=== PATIENT | male | born 1940 | race Two or more races ===

== ENCOUNTER 2024-07-13 15:27 | Inpatient (IN) | payer OTHER ==
[~2024-07-13] VITALS: Ht 162.6 cm; Wt 108.1 kg
--- NOTE | 2024-07-13 16:04 | ED.PDOC ---
History of Present Illness HPI Comments 84 y/o M, with a Hx of CHF, COPD, and obesity, is BIBA for c/o ALOC, shortness of breath, and wheezing, today. Per EMS report, patient's spouse called, initially, due to patient being altered for the past 5x days, with him last being seen normal on 07/08/24. Patient was found wheezing, with low SpO2 saturation in the "low 70's," and being oriented only to place on scene and was placed on nebulizer Tx with 8L O2 en route. All other remaining vitals were stated to have been within normal limits and stable. At time of assessment, patient comments on being "cold" and has labored breath, with short-worded response to inquires. Patient has no reported known recent injuries, sick contact, travel, or substance use/exposure along with any additional pertinent or relevant Hx. Patient has no endorsed no chest pain, cough, palpations, fever, chills, or other associated symptoms or modifiers at this time. Further Hx cannot be obtained, currently, due to patient's current condition and absence of family/insurance investigator historians. Chief Complaint: Shortness of Breath Time Seen by MD: 15:30 Primary Care Provider: UNKNOWN Reviewed Notes: Nurses Notes, Medications, Allergies Allergies: Coded Allergies: Fentanyl (Verified Allergy, Severe, 07/13/24) Information Source: Patient, Emergency Med Personnel Mode of Arrival: EMS Severity: Moderate Timing: Days Duration: Since onset Prehospital treatment: 12 Lead EKG, Accucheck, Medical Laboratory Specialist Past Medical History PAST MEDICAL HISTORY: CHF, COPD Past Medical History (Other): obesity Surgical History: Tonsillectomy Surgical History (Other): right knee Sx Constitutional: denies: chills, diaphoresis, fatigue, fever, malaise, sweats, weakness, others EENTM: denies: blurred vision, double vision, ear bleeding, ear discharge, ear drainage, ear pain, ear ringing, eye pain, eye redness, hearing loss, mouth pain, mouth swelling, nasal discharge, nose bleeding, nose congestion, nose pain, photophobia, tearing, throat pain, throat swelling, voice changes, others Respiratory: reports: shortness of breath, wheezing; denies: cough, hemoptysis, orthopnea, SOB at rest, SOB with excertion, stridor, others Cardiovascular: denies: chest pain, dizzy spells, diaphoresis, Dyspnea on exertion, edema, irregular heart beat, left arm pain, lightheadedness, palpitations, PND, syncope, others Gastrointestinal: denies: abdomen distended, abdominal pain, blood streaked bowels, constipated, diarrhea, dysphagia, difficulty swallowing, hematemesis, melena, nausea, poor appetite, poor fluid intake, rectal bleeding, rectal pain, vomiting, others Genitourinary: denies: burning, dysuria, flank pain, frequency, hematuria, incontinence, penile discharge, penile sore, pain, testicle pain, testicle swelling, urgency, others Neurological: reports: others (ALOC); denies: dizziness, fainting, headache, left sided numbness, left sided weakness, numbness, paresthesia, pre-existing deficit, right sided numbness, right sided weakness, seizure, speech problems, tingling, tremors, weakness Musculoskeletal: denies: back pain, gout, joint pain, joint swelling, muscle pain, muscle stiffness, neck pain, others Integumetry: denies: bruises, change in color, change in hair/nails, dryness, laceration, lesions, lumps, rash, wounds, others Allergic/Immunocompromised: denies: Difficulty Healing, Frequent Infections, Hives, Itching, others Hematologic/Lymphatic: denies: anemia, blood clots, easy bleeding, easy bruising, swollen glands, others Endocrine: denies: excessive hunger, excessive sweating, excessive thirst, excessive urination, flushing, intolerance to cold, intolerance to heat, unexplained weight gain, unexplained weight loss, others Psychiatric: denies: anxiety, bipolar disorder, depression, hopeless, panic disorder, schizophrenia, sleepless, suicidal, others All Other Systems: Reviewed and Negative Physical Exam General Appearance: Moderate Distress, Obese HEENT: Normal ENT Inspection, Pharynx Normal, TMs Normal Neck: Full Range of Motion, Non-Tender, Normal, Normal Inspection Respiratory: Chest Non-Tender, Decreased Breath Sounds, No Accessory Muscle Use, Respiratory Distress, Wheezing Cardiovascular: No Edema, No JVD, No Murmur, No Gallop, Normal Peripheral Pulses, Regular Rate/Rhythm Breast Exam: Deferred Gastrointestinal: No Organomegaly, Non Tender, No Pulsatile Mass, Normal Bowel Sounds, Soft Genitalia: Deferred Pelvic: Deferred Rectal: Deferred Extremities: No calf tenderness, Normal capillary refill, Normal inspection, Normal range of motion, Non-tender, No pedal edema Musculoskeletal : Apperance: Normal Neurologic: Alert, brand ambassadors promotional sales II-XII nml as Tested, Motor Weakness, Normal Affect, Normal Mood, No Sensory Deficits Cerebellar Function: Normal Reflexes: Normal Skin: Dry, Normal Color, Warm Lymphatic: No Adenopathy Was a procedure done? Was a procedure done?: No EKG EKG : Pulse Rate (adult): 76 [place]: Normal Cardiac Rhythm: NSR Block: RBBB Hypertrophy: None ST: Normal Differential Dx Considerations may include: COPD exacerbation, CHF exacerbation, PNA, pleural effusion, Covid19, bronchitis, URI, viral syndrome, UTI X-Ray, Labs, Meds, VS Vital Signs Date Time Temp Pulse Resp B/P (MAP) Pulse Ox O2 Delivery O2 Flow Rate FiO2 07/13/24 16:39 78 07/13/24 16:08 98 Nasal Cannula* 2 28 07/13/24 16:08 18 98 Nasal Cannula* 2 28 07/13/24 16:03 76 07/13/24 15:36 76 07/13/24 15:27 98.4 78 26 148/77 (100) 80 Lab Test 07/13/24 17:32 07/13/24 16:33 Range/Units Troponin I High Sensitivity Pending 13 </=54 ng/L White Blood Count 8.5 4.4-10.8 10^3/uL Red Blood Count 4.52 4.5-5.90 10^6/uL Hemoglobin 14.2 13.5-17.5 g/dL Hematocrit 43.9 41.0-53.0 % Mean Corpuscular Volume 97.0 80.0-100.0 fL Mean Corpuscular Hemoglobin 31.5 28.0-32.0 pg Mean Corpuscular Hemoglobin Concent 32.5 32.0-36.0 g/dL Red Cell Distribution Width 16.6 H 11.8-14.3 % Platelet Count 149 140-450 10^3/uL Mean Platelet Volume 11.1 H 6.9-10.8 fL Neutrophils (%) (Auto) 78.8 37.0-80.0 % Lymphocytes (%) (Auto) 12.7 10.0-50.0 % Monocytes (%) (Auto) 6.0 0.0-12.0 % Eosinophils (%) (Auto) 1.8 0.0-7.0 % Basophils (%) (Auto) 0.7 0.0-2.0 % Neutrophils # (Auto) 6.7 1.6-8.6 10 ^3/uL Lymphocytes # (Auto) 1.1 0.4-5.4 10 ^3/uL Monocytes # (Auto) 0.5 0-1.3 10 ^3/uL Eosinophils # (Auto) 0.2 0-0.8 10 ^3/uL Basophils # (Auto) 0.1 0-0.2 10 ^3/uL Nucleated Red Blood Cells 0.1 % Sodium Level Pending Potassium Level Pending Chloride Level Pending Carbon Dioxide Level Pending Anion Gap Pending Blood Urea Nitrogen Pending Creatinine Pending Glomerular Filtration Rate Calc Pending BUN/Creatinine Ratio Pending Serum Glucose Pending Calcium Level Pending B-Type Natriuretic Peptide Pending Current Medications Medications (Trade) Dose Ordered Sig/Carey Route Start Time Stop Time Status Last Admin Methylprednisolone Sodium Succinate (Solu Medrol) 125 mg ONCE ONCE IV 07/13/24 15:45 07/13/24 15:46 DC 07/13/24 16:42 Ipratropium [place] (Atrovent Medneb) 1 mg ONCE ONCE N 07/13/24 15:45 07/13/24 15:46 DC 07/13/24 16:08 Albuterol (Ventolin Medneb) 10 mg ONCE ONCE N 07/13/24 15:45 07/13/24 15:46 DC 07/13/24 16:08 PROCEDURE(s): CXRP - CHEST PORTABLE Findings/Impression: Frontal chest radiograph demonstrates that the left costophrenic angle is cut off on this exam. No acute osseous or superficial soft tissue abnormalities. The trachea is midline. Cardiomegaly with pulmonary vascular congestion. No pneumothorax, right pleural effusion, or consolidations. The patient was being given Lasix 40 mg IV push The patient was given a continuous breathing treatment of albuterol and Atrovent The patient was also given Solu-Medrol 125 mg IV push The CBC is within normal limits The patient's troponin level is negative At this time, the patient remains on oxygen nasal cannula The patient was being admitted to the hospitalist Images Reviewed?: Images reviewed and evaluated by me Time of 1ST Reevaluation: 16:00 Reevaluation 1ST: Unchanged Patient Education/Counseling: Diagnosis, Treatment, Prognosis Family Education/Counseling: No Family Present Departure 1 Departure Time of Disposition: 18:25 Impression: Primary Impression: Acute on chronic diastolic heart failure Additional Impression: COPD exacerbation Disposition: 09 ADMITTED INPATIENT Admit to: Tele Condition: Fair Critical Care Note Critical Care Time?: Yes (55 min-critical care time only) Stability Stability form required: Yes Unstable for transfer: Telemetry monitoring (Telemetry monitoring required), ED Physician Assesment (Clinical assesment) Heart Score Heart Score: Heart Score Response (Comments) Value History Moderate Suspicious 1 EKG Normal 0 Age >65 2 Risk Factors >3 or Hx ASHD 2 Troponin Normal limit 0 Total 5 I personally scribed for JOSE L BARRERA MD ([email or web address]) on 07/13/24 at 16:03. Electronically submitted by Ethan Boss ([email or web address]). I personally scribed for JOSE L BARRERA MD ([email or web address]) on 07/13/24 at 16:05. Electronically submitted by Ethan Boss ([email or web address]). I personally scribed for JOSE L BARRERA MD ([email or web address]) on 07/13/24 at 16:34. Electronically submitted by Ethan Boss ([email or web address]). JOSE L BARRERA MD Jul 13, 2024 16:03
[2024-07-13] MEDS: ALBUTEROL SULF 2.5 MG/0.5ML(0.5%) NEB SOLN HHN ONE (16:08)
[2024-07-13] MEDS: IPRATROPIUM BROM 0.5 MG/2.5ML INH SOL HHN ONE (16:08)
--- NOTE | 2024-07-13 16:19 | DVH ---
EXAM: XY CHEST PORTABLE TECHNIQUE: Single frontal chest radiograph CLINICAL HISTORY: sob COMPARISON: None Findings/Impression: Frontal chest radiograph demonstrates that the left costophrenic angle is cut off on this exam. No acute osseous or superficial soft tissue abnormalities. The trachea is midline. Cardiomegaly with pulmonary vascular congestion. No pneumothorax, right pleural effusion, or consolidations.
[2024-07-13] MEDS: methylPREDNISolone SOD SUCC 125 MG/2 ML VL IV ONE (16:42)
[2024-07-13 17:00] VITALS: PULSE 79; RESP 20; O2SAT 93
[2024-07-13 17:02] LABS: Basophils # (auto) 0.1 10 ^3/uL (0-0.2); Basophils % (auto) 0.7 % (0.0-2.0); Eosinophils # (auto) 0.2 10 ^3/uL (0-0.8); Eosinophils % (auto) 1.8 % (0.0-7.0); Hematocrit 43.9 % (41.0-53.0); Hemoglobin 14.2 g/dL (13.5-17.5); Lymphocytes # (auto) 1.1 10 ^3/uL (0.4-5.4); Lymphocytes % (auto) 12.7 % (10.0-50.0); Mean Corpuscular Hemoglobin 31.5 pg (28.0-32.0); Mean Corpuscular Hgb Conc. 32.5 g/dL (32.0-36.0); Monocytes # (auto) 0.5 10 ^3/uL (0-1.3); Neutrophils # (auto) 6.7 10 ^3/uL (1.6-8.6); Neutrophils % (auto) 78.8 % (37.0-80.0); Nucleated Red Blood Cells % 0.1 %; Platelet Count (auto) 149 10^3/uL (140-450); Red Blood Cells 4.52 10^6/uL (4.5-5.90); Red Cell Distribution Width 16.6 % (11.8-14.3); White Blood Cell 8.5 10^3/uL (4.4-10.8)
[2024-07-13 18:41] LABS: Potassium 4.6 mmol/L (3.5-5.1); Sodium 143 mmol/L (136-145)
[2024-07-13 18:42] LABS: Anion Gap 11 (5-15); Calcium 9.8 mg/dL (8.7-10.4); Carbon Dioxide 22 mmol/L (20-31)
[2024-07-13 18:47] LABS: BUN/Creatinine Ratio 11.3 (10.0-20.0); Blood Urea Nitrogen 15 mg/dL (9-23)
[2024-07-13 18:57] LABS: Chloride 110 mmol/L (98-107); Glucose 166 mg/dL (74-106)
--- NOTE | 2024-07-13 18:59 | ECG ---
[facility] Test Date: 2024-07-13 Test Time: 15:33:20 Pat Name: IVORY PURCELL Department: ED Room: 0293T Gender: M Sample Card Maker: SERVANDO : 1940 Requested By: JOSE L BARRERA Order Number: [id number] Reading MD: Floyd Longoria Measurements Intervals [place] Rate: 76 P: 14 TX: 227 QRS: 41 QRSD: 155 T: 45 QT: 461 QTc: 519 Interpretive Statements Sinus rhythm Prolonged TX interval Right bundle branch block Electronically Signed On 07-14-2024 12:05:06 PST by Floyd Longoria Please click the below link to view image of tracing.
[2024-07-13 19:30] VITALS: PULSE 69; RESP 20; O2SAT 99
[2024-07-13] MEDS: FUROSEMIDE 40 MG/4 ML VIAL IV ONE (20:12)
[2024-07-13 20:13] LABS: Urine Bacteria None Seen /hpf (None Seen)
[2024-07-13 20:26] LABS: Urine Blood Negative /uL (Negative); Urine Clarity Clear (Clear); Urine Color Yellow (Yellow); Urine Mucus FEW (None Seen); Urine Protein, UAD 1+ (Negative); Urine Specific Gravity 1.026 (1.001-1.035); Urine Urobilinogen Normal (Negative); Urine WBC 1 /hpf (0 - 3); Urine pH 5.5 (5.0-9.0)
[2024-07-13] MEDS ORDERED: NITROGLYCERIN 0.4 MG SL TAB SL PRN (21:00)
[2024-07-13] MEDS ORDERED: MORPHINE SULFATE INJ 2 MG/ml SYRG IV PRN (21:00)
[2024-07-13] MEDS ORDERED: ACETAMINOPHEN 325 MG TAB PO PRN (22:00)
[2024-07-13] MEDS ORDERED: ONDANSETRON HCL 4 MG/2 ML VIAL IV PRN (22:00)
[2024-07-13 22:30] VITALS: BP 162/131; PULSE 71; RESP 18; TEMP 98.2; O2SAT 98
--- NOTE | 2024-07-13 22:59 | DVH ---
CT HEAD WITHOUT CONTRAST INDICATION: AMS COMPARISON: None TECHNIQUE: CT of the head without intravenous contrast. RADIATION DOSE: CTDIvol: 62.81 mGy, DLP: 1132.21 mGy*cm FINDINGS: There is no evidence of acute intracranial hemorrhage, extra-axial collection, mass effect, midline s hift, herniation or hydrocephalus. The ventricles, sulci and cisterns are age appropriate. Chronic microvascular ischemic changes. Severe mucosal thickening of the right maxillary sinus. The surroun ding soft tissues and osseous structures are unremarkable. IMPRESSION: 1. No evidence of acute intracranial hemorrhage, mass effect or hydrocephalus. 2. Right maxillary sinusitis.
--- NOTE | 2024-07-13 23:05 | DVH ---
Bilateral lower extremity venous duplex Clinical History: r/o dvt Comparison: None Technique: Duplex Doppler evaluation of the deep venous systems of both lower extremities from the common femora l veins to the popliteal veins including color Doppler and spectral/pulsed waveform analysis was perf ormed. Findings: RIGHT SIDE: The common femoral vein demonstrates appropriate compressibility and waveform variability. There is compressibility/patency of the great saphenous vein at the proximal thigh. The femoral vein demonstrates appropriate compressibility and waveform variability. The deep femoral vein demonstrates appropriate compressibility and waveform variability. The popliteal vein demonstrates appropriate compressibility and waveform variability. There is normal compressibility at the tibioperoneal trunk. LEFT SIDE: The common femoral vein demonstrates appropriate compressibility and waveform variability. There is compressibility/patency of the great saphenous vein at the proximal thigh. The femoral vein demonstrates appropriate compressibility and waveform variability. The deep femoral vein demonstrates appropriate compressibility and waveform variability. The popliteal vein demonstrates appropriate compressibility and waveform variability. There is normal compressibility at the tibioperoneal trunk. Impression: 1. No right or left femoropopliteal venous thrombosis.
[2024-07-14] VITALS (12 sets, daily range): BP systolic 118–136; BP diastolic 49–75; PULSE 55–84; RESP 18–23; TEMP 97–98.2; O2SAT 88–99
[2024-07-14] MEDS: ATORVASTATIN 20 MG TAB PO SCH (00:09)
[2024-07-14] MEDS: CARVEDILOL 3.125 MG TAB PO SCH (00:10)
--- NOTE | 2024-07-14 00:43 | DVHHP2 ---
History of Present Illness Reason for Visit: Shortness of breath History of Present Illness 84-year-old male with a history of congestive heart failure and COPD presents for evaluation of shortness for breath. On arrival patient was noted to be altered with a low oxygen saturation. Patient is currently lethargic oriented x2. Denies chest pain or palpitations. No family at the bedside to provide further history. Past Medical History COPD, hypertension, CHF, dyslipidemia,? Dementia Past Surgical History Tonsillectomy Family History Noncontributory Smoke: No ALCOHOL: none Drugs: None Lives: with Family Review of Systems Review of Systems Review of systems are limited due to the patient's altered mental status. Allergies: Coded Allergies: Fentanyl (Verified Allergy, Severe, 07/13/24) Medications Current Medications Medications Dose Ordered Sig/Carey Route Start Time Stop Time Status Last Admin Dose Admin Nitroglycerin 0.4 mg Q5MINP PRN SL 07/13/24 21:00 Morphine Sulfate 2 mg Q30M PRN IV 07/13/24 21:00 Albuterol 2.5 mg Q6HPRN PRN NEB 07/13/24 22:00 Carvedilol 3.125 mg Q12HR PO 07/13/24 22:00 07/14/24 00:10 3.125 MG Furosemide 40 mg DAILY PO 07/14/24 10:00 Lisinopril 10 mg DAILY PO 07/14/24 10:00 Atorvastatin Calcium 10 mg HS PO 07/13/24 22:00 07/14/24 00:09 10 MG Aspirin 81 mg DAILY PO 07/14/24 10:00 Ondansetron HCl 4 mg Q4HP PRN IV 07/13/24 22:00 Enoxaparin Sodium 40 mg DAILY SC 07/14/24 10:00 Acetaminophen 650 mg Q6HP PRN PO 07/13/24 22:00 Exam Vital Signs Vital Signs Date Time Temp Pulse Resp B/P (MAP) Pulse Ox O2 Delivery O2 Flow Rate FiO2 07/14/24 00:10 71 146/79 07/14/24 00:00 19 93 07/13/24 22:30 98.2 3.0 32 98.2 07/13/24 22:30 Nasal Cannula* Exam Gen: 84-year-old male in mild distress, lethargic Skin: Warm, dry, normal color and texture, no rash. HEENT: Normocephalic atraumatic, mucous membranes moist and pink. Neck: Cervical and supraclavicular nodes normal without enlargement, trachea is midline, thyroid gland is normal without masses. Pulmonary: Clear to auscultation and percussion bilaterally. Cardiac: Regular rate and rhythm. No murmur Abdomen: Soft, nontender, nondistended, bowel sounds present all 4 quadrants, no guarding, no rigidity, no organomegaly. Extremities: No cyanosis, clubbing, no edema Neuro: Cranial nerves II through XII grossly intact, lethargic, no focal deficits Labs/Xrays ORDERING PHYSICIAN: LORI ARIZACNP PROCEDURE(s): BLDVT - BiLat Lower DVT REASON: r/o dvt ORDER NUMBER(s): [id number], ACCESSION NUMBER(s): [id number] Bilateral lower extremity venous duplex Clinical History: r/o dvt Comparison: None Technique: Duplex Doppler evaluation of the deep venous systems of both lower extremities from the common femoral veins to the popliteal veins including color Doppler and spectral/pulsed waveform analysis was performed. Findings: RIGHT SIDE: The common femoral vein demonstrates appropriate compressibility and waveform variability. There is compressibility/patency of the great saphenous vein at the proximal thigh. The femoral vein demonstrates appropriate compressibility and waveform variability. The deep femoral vein demonstrates appropriate compressibility and waveform variability. The popliteal vein demonstrates appropriate compressibility and waveform variability. There is normal compressibility at the tibioperoneal trunk. LEFT SIDE: The common femoral vein demonstrates appropriate compressibility and waveform variability. There is compressibility/patency of the great saphenous vein at the proximal thigh. The femoral vein demonstrates appropriate compressibility and waveform variability. The deep femoral vein demonstrates appropriate compressibility and waveform vari ability. The popliteal vein demonstrates appropriate compressibility and waveform variability. There is normal compressibility at the tibioperoneal trunk. Impression: 1. No right or left femoropopliteal venous thrombosis. ATED BY: DANICA BOSTON MD ORDERING PHYSICIAN: LORI ARIZA AGACNP PROCEDURE(s): HWOCT - HEAD WITHOUT CONTRAST REASON: AMS ORDER NUMBER(s): [id number], ACCESSION NUMBER(s): [id number] CT HEAD WITHOUT CONTRAST INDICATION: AMS COMPARISON: None TECHNIQUE: CT of the head without intravenous contrast. RADIATION DOSE: CTDIvol: 62.81 mGy, DLP: 1132.21 mGy*cm FINDINGS: There is no evidence of acute intracranial hemorrhage, extra-axial collection, mass effect, midline shift, herniation or hydrocephalus. The ventricles, sulci and cisterns are age appropriate. Chronic microvascular ischemic changes. Severe mucosal thickening of the right maxillary sinus. The surrounding soft tissues and osseous structures are unremarkable. IMPRESSION: 1. No evidence of acute intracranial hemorrhage, mass effect or hydrocephalus. 2. Right maxillary sinusitis. Labs Test 07/13/24 20:12 07/13/24 17:32 07/13/24 16:33 Range/Units Urine Color Yellow Yellow Urine Clarity Clear Clear Urine pH 5.5 5.0-9.0 Urine Specific [place] 1.026 1.001-1.035 Urine Protein 1+ H Negative Urine Ketones Negative Negative Urine Blood Negative Negative /uL Urine Nitrite Negative Negative Urine Bilirubin Negative Negative Urine Urobilinogen Normal Negative mg/dL Urine Leukocyte Esterase Negative Negative /uL Urine RBC 1 0 - 3 /hpf Urine WBC 1 0 - 3 /hpf Urine Squamous Epithelial Cells Few <5 /hpf Urine Bacteria None seen None Seen /hpf Urine Mucus Few None Seen Urine Glucose Normal Normal mg/dL Sodium Level 143 136-145 mmol/L Potassium Level 4.6 3.5-5.1 mmol/L Chloride Level 110 H 98-107 mmol/L Carbon Dioxide Level 22 20-31 mmol/L Anion Gap 11 5-15 Blood Urea Nitrogen 15 9-23 mg/dL Creatinine 1.33 H 0.700-1.30 mg/dL Glomerular Filtration Rate Calc 52 >90 mL/min BUN/Creatinine Ratio 11.3 10.0-20.0 Serum Glucose 166 H 74-106 mg/dL Calcium Level 9.8 8.7-10.4 mg/dL Troponin I High Sensitivity 12 </=54 ng/L White Blood Count 8.5 4.4-10.8 10^3/uL Red Blood Count 4.52 4.5-5.90 10^6/uL Hemoglobin 14.2 13.5-17.5 g/dL Hematocrit 43.9 41.0-53.0 % Mean Corpuscular Volume 97.0 80.0-100.0 fL Mean Corpuscular Hemoglobin 31.5 28.0-32.0 pg Mean Corpuscular Hemoglobin Concent 32.5 32.0-36.0 g/dL Red Cell Distribution Width 16.6 H 11.8-14.3 % Platelet Count 149 140-450 10^3/uL Mean Platelet Volume 11.1 H 6.9-10.8 fL Neutrophils (%) (Auto) 78.8 37.0-80.0 % Lymphocytes (%) (Auto) 12.7 10.0-50.0 % Monocytes (%) (Auto) 6.0 0.0-12.0 % Eosinophils (%) (Auto) 1.8 0.0-7.0 % Basophils (%) (Auto) 0.7 0.0-2.0 % Neutrophils # (Auto) 6.7 1.6-8.6 10 ^3/uL Lymphocytes # (Auto) 1.1 0.4-5.4 10 ^3/uL Monocytes # (Auto) 0.5 0-1.3 10 ^3/uL Eosinophils # (Auto) 0.2 0-0.8 10 ^3/uL Basophils # (Auto) 0.1 0-0.2 10 ^3/uL Nucleated Red Blood Cells 0.1 % B-Type Natriuretic Peptide 196.56 0-100 pg/mL Assessment/Plan Assessment/Plan Assessment Acute on chronic respiratory failure Congestive heart failure COPD ? Metabolic encephalopathy Hypertension ? Dementia Plan Admit the patient to telemetry to the hospitalist Echocardiogram pending Resume home medications Continue treatment per orders. Plan discussed with: Other My Orders Orders - LORI ARIZA Procedure Category Date Status Time Admit ADMIT 07/13/24 Transmitted 20:48 Nitroglycerin PHA 07/13/24 In Process Sublingual (Ntrostat 21:00 Morphine Sulfate PHA 07/13/24 In Process Injection 21:00 Stat Ekg For Chest MARY 07/13/24 In Process Pain 20:48 Notify Of Changes MARY 07/13/24 In Process From Base 20:48 Cover Maker For MARY 07/13/24 In Process 24 Hours 20:48 Emergency Dysrhythmia MARY 07/13/24 In Process Protocol 20:48 Rhythm Strips Once MARY 07/13/24 In Process Every Shift 20:48 Oxygen By Nasal RT 07/13/24 Transmitted Cannula 20:[address] 07/13/24 Resulted 21:50 Bilat Lower Dvt US 07/13/24 Resulted 21:50 Albuterol Medneb PHA 07/13/24 In Process (Ventolin Medneb) 22:00 Carvedilol Tablet PHA 07/13/24 In Process (Coreg Tablet) 22:00 Furosemide Tablet PHA 07/14/24 In Process (Lasix Tablet) 10:00 Lisinopril Tablet PHA 07/14/24 In Process (Zestril Tablet) 10:00 Atorvastatin (Lipitor) PHA 07/13/24 In Process 22:00 Aspirin Tablet PHA 07/14/24 In Process 10:00 Basic Metabolic Panel LAB 07/14/24 Logged 04:00 Ondansetron Hcl PHA 07/13/24 In Process (Zofran) 22:00 Enoxaparin Sodium PHA 07/14/24 In Process (Lovenox) 10:00 Complete Blood Count LAB 07/14/24 Logged 04:00 Echo 2d Mode Cardiac US 07/13/24 Logged DOP 21:50 Condition: Fair MARY 07/13/24 In Process 21:50 Acetaminophen Tablet PHA 07/13/24 In Process (Tylenol Tablet) 22:00 Bedrest With Bathroom MAYR 07/13/24 In Process Privileg 21:50 Date of Service: Jul 13, 2024 Billing Provider: LORI ARIZA Common Visit Codes: [id number] INP/OBS CARE (HIGH) LORI ARIZA Jul 14, 2024 00:43
[2024-07-14] MEDS: ALBUTEROL SULF 2.5 MG/0.5ML(0.5%) NEB SOLN NEB PRN (05:18)
[2024-07-14] MEDS: hydrALAZINE HCL 20 MG/ML VL IV ONE (06:13)
[2024-07-14 08:41] LABS: Chloride 106 mmol/L (98-107); Potassium 4.8 mmol/L (3.5-5.1); Sodium 141 mmol/L (136-145)
[2024-07-14 08:42] LABS: Anion Gap 9 (5-15); Carbon Dioxide 26 mmol/L (20-31)
[2024-07-14 08:43] LABS: Calcium 9.9 mg/dL (8.7-10.4)
[2024-07-14 08:46] LABS: Basophils # (auto) 0 10 ^3/uL (0-0.2); Basophils % (auto) 0.1 % (0.0-2.0); Eosinophils # (auto) 0 10 ^3/uL (0-0.8); Hematocrit 43.3 % (41.0-53.0); Hemoglobin 13.7 g/dL (13.5-17.5); Lymphocytes # (auto) 0.5 10 ^3/uL (0.4-5.4); Lymphocytes % (auto) 8.2 % (10.0-50.0); Mean Corpuscular Hemoglobin 30.9 pg (28.0-32.0); Mean Corpuscular Hgb Conc. 31.8 g/dL (32.0-36.0); Mean Corpuscular Volume 97.3 fL (80.0-100.0); Monocytes # (auto) 0.1 10 ^3/uL (0-1.3); Neutrophils # (auto) 5.2 10 ^3/uL (1.6-8.6); Neutrophils % (auto) 90.7 % (37.0-80.0); Nucleated Red Blood Cells % 0.2 %; Platelet Count (auto) 133 10^3/uL (140-450); Red Blood Cells 4.45 10^6/uL (4.5-5.90); White Blood Cell 5.7 10^3/uL (4.4-10.8)
[2024-07-14 08:47] LABS: Blood Urea Nitrogen 21 mg/dL (9-23)
[2024-07-14 08:52] LABS: Glucose 254 mg/dL (74-106)
[2024-07-14] MEDS: ENOXAPARIN SOD 40 MG/0.4 ML SYRINGE SC SCH (10:00)
[2024-07-14] MEDS: LISINOPRIL 5 MG TAB PO SCH (10:38)
[2024-07-14] MEDS: ASPirin 81 mg TAB PO SCH (10:39)
[2024-07-14] MEDS: FUROSEMIDE 40 MG TAB PO SCH (10:39)
--- NOTE | 2024-07-14 15:25 | DVHPN2 ---
Progress Note Date Seen: Jul 14, 2024 Medical Necessity Reason Pt with a Central, PICC or Fol: Yes The following are medically ne: Huynh Catheter Reason for huynh catheter: Strict I&O Subjective Patient reports: No new complaints Review of Systems: HEENT:Normal, CVS:Normal, RESPIRATORY:Normal, GI:Normal, :Normal, MSK:Normal, NEURO:Normal Objective vital signs Vital Sign Date Time Temp Pulse Resp B/P (MAP) Pulse Ox O2 Delivery O2 Flow Rate FiO2 07/14/24 13:00 97.6 73 22 118/75 (89) 99 97.6 07/14/24 09:55 Nasal Cannula* 3 32 medications Current Medications Medications Dose Ordered Sig/Carey Route Start Time Stop Time Status Last Admin Dose Admin Nitroglycerin 0.4 mg Q5MINP PRN SL 07/13/24 21:00 Morphine Sulfate 2 mg Q30M PRN IV 07/13/24 21:00 Albuterol 2.5 mg Q6HPRN PRN NEB 07/13/24 22:00 07/14/24 05:18 2.5 MG Carvedilol 3.125 mg Q12HR PO 07/13/24 22:00 07/14/24 10:39 3.125 MG Furosemide 40 mg DAILY PO 07/14/24 10:00 07/14/24 10:39 40 MG Lisinopril 10 mg DAILY PO 07/14/24 10:00 07/14/24 10:38 10 MG Atorvastatin Calcium 10 mg HS PO 07/13/24 22:00 07/14/24 00:09 10 MG Aspirin 81 mg DAILY PO 07/14/24 10:00 07/14/24 10:39 81 MG Ondansetron HCl 4 mg Q4HP PRN IV 07/13/24 22:00 Enoxaparin Sodium 40 mg DAILY SC 07/14/24 10:00 Acetaminophen 650 mg Q6HP PRN PO 07/13/24 22:00 Examination: GENERAL:Normal, HEENT:Normal, NECK:Normal, LUNGS:Normal, LUNGS:Abnormal (on oxygen), CVS:Normal, ABDOMEN:Normal, MSK:Normal, MSK:Abnormal (edema++, ulcer left leg), SKIN:Normal, NEURO:Normal, :Normal laboratory and microbiology Laboratory Tests 07/14/24 08:15 Test 07/14/24 08:15 Range/Units Serum Glucose 254 H 74-106 mg/dL Problem List/Assessment/Plan Problem List/Assessment/Plan #1 acute resp failure: cont oxygen #2 acute systolic/diastolic heart failure: lasix iv, echo #3 cellulitis left leg: iv ancef #4 obesity #5 copd #6 non ambulatory #7 ckd stage 3 #8 thrombocytopenia: monitor advance care planning- full code- time spent 19 mins Plan discussed with: Patient My Orders My Orders Orders - LORI ROSE MD Procedure Category Date Status Time Cleanse Wound With MARY 07/14/24 In Process Wound Clean 11:18 Apply Barrier Cream MARY 07/14/24 In Process 10:38 Furosemide Injection PHA 07/14/24 Verified (Lasix Injection) 15:30 Furosemide Injection PHA 07/15/24 Verified (Lasix Injection) 10:00 Cefazolin Ancef PHA 07/14/24 Verified 22:00 Basic Metabolic Panel LAB 07/15/24 Verified 06:00 Complete Blood Count LAB 07/15/24 Verified 06:00 Vitamin B12 LAB 07/15/24 Verified 06:00 Thyroid Stimulating LAB 07/15/24 Verified Hormone 05:00 Date of Service: Jul 14, 2024 Billing Provider: LORI ROSE MD Common Visit Codes: [id number] INP/OBS CARE(HIGH) Secondary Visit Codes: [id number] CARE PLAN 30 MINUTES LORI ROSE MD Jul 14, 2024 15:24
[2024-07-14] MEDS: ceFAZolin 1GM/50ML 50 ML IV ONE (18:45)
[2024-07-14] MEDS: FUROSEMIDE 40 MG/4 ML VIAL IV ONE (18:51)
[2024-07-14 19:44] LABS: Base Excess 1.5 mmol/L (-2.0-3.0)
--- NOTE | 2024-07-14 20:46 | DVH ---
CHEST RADIOGRAPH Indication: SOB Technique: Single frontal view of the chest was obtained COMPARISON: XY CHEST PORTABLE on DOS: 07/13/24 FINDINGS: Lines and Tubes: None Lungs: Moderate interstitial pulmonary edema. Pleura: Small left effusion. No pneumothorax. Cardiomediastinal contours: Cardiomegaly Bones: Unremarkable IMPRESSION: 1. Moderate interstitial pulmonary edema. 2. Cardiomegaly. 3. Small left effusion.
[2024-07-14] MEDS: ceFAZolin 1GM/50ML 50 ML IV SCH (21:15)
[2024-07-15] VITALS (12 sets, daily range): BP systolic 109–154; BP diastolic 55–81; PULSE 53–68; RESP 18–21; TEMP 96.4–98.9; O2SAT 95–98
[2024-07-15 08:14] LABS: Basophils # (auto) 0 10 ^3/uL (0-0.2); Basophils % (auto) 0.4 % (0.0-2.0); Eosinophils # (auto) 0 10 ^3/uL (0-0.8); Eosinophils % (auto) 0.4 % (0.0-7.0); Hematocrit 41.4 % (41.0-53.0); Hemoglobin 13.7 g/dL (13.5-17.5); Lymphocytes # (auto) 1.4 10 ^3/uL (0.4-5.4); Lymphocytes % (auto) 14.1 % (10.0-50.0); Mean Corpuscular Hemoglobin 31.7 pg (28.0-32.0); Mean Corpuscular Hgb Conc. 33.1 g/dL (32.0-36.0); Mean Corpuscular Volume 95.9 fL (80.0-100.0); Monocytes # (auto) 0.8 10 ^3/uL (0-1.3); Monocytes % (auto) 7.9 % (0.0-12.0); Neutrophils # (auto) 7.7 10 ^3/uL (1.6-8.6); Neutrophils % (auto) 77.2 % (37.0-80.0); Platelet Count (auto) 148 10^3/uL (140-450); Red Blood Cells 4.31 10^6/uL (4.5-5.90); Red Cell Distribution Width 16.1 % (11.8-14.3)
[2024-07-15 08:26] LABS: Chloride 103 mmol/L (98-107); Potassium 4.4 mmol/L (3.5-5.1); Sodium 141 mmol/L (136-145)
[2024-07-15 08:27] LABS: Anion Gap 8 (5-15); Calcium 9.5 mg/dL (8.7-10.4); Carbon Dioxide 30 mmol/L (20-31)
[2024-07-15 08:32] LABS: BUN/Creatinine Ratio 20.8 (10.0-20.0)
[2024-07-15 08:33] LABS: Blood Urea Nitrogen 37 mg/dL (9-23); Glucose 153 mg/dL (74-106)
[2024-07-15] MEDS: FUROSEMIDE 40 MG/4 ML VIAL IV SCH (10:32)
--- NOTE | 2024-07-15 11:05 | DVHPN2 ---
Subjective Continue to complain of shortness of breath Reviewed: Care Plan, H&P, Labs, Medications, Previous Orders, Radiology Changes from previous H/P or p: No Changes Objective Vitals Vital Signs Date Time Temp Pulse Resp B/P (MAP) Pulse Ox O2 Delivery O2 Flow Rate FiO2 07/15/24 10:34 144/56 07/15/24 10:33 70 07/15/24 09:00 96.4 20 97 96.4 07/14/24 20:00 Nasal Cannula* 3 32 Intake/Output Intake and Output 07/15/24 07:00 Intake Total 1144 ml Output Total 4850 ml Balance -3706 ml Intake Oral 994 ml IV Total 150 ml Output Urine Total 4850 ml # Bowel Movements 2 General Appearance: Alert, Oriented X3, Cooperative, mild distress, Other (Morbidly obese) HEENT: Atraumatic Lungs: Other (Decreased air entry bilaterally with scattered crackles) Cardiovascular: Regular rate, Normal S1, Normal S2 Genitourinary: Other (Glynn's) Extremities: Other (Pitting edema) Neuro: Normal speech, Cranial nerves 3-12 NL Skin: Other (Left leg signs of infection/cellulitis) Psych/Mental Status: Mental status NL Medications Current Medications Medications Dose Ordered Sig/Carey Route Start Time Stop Time Status Last Admin Dose Admin Nitroglycerin 0.4 mg Q5MINP PRN SL 07/13/24 21:00 Morphine Sulfate 2 mg Q30M PRN IV 07/13/24 21:00 Albuterol 2.5 mg Q6HPRN PRN NEB 07/13/24 22:00 07/14/24 19:56 2.5 MG Carvedilol 3.125 mg Q12HR PO 07/13/24 22:00 07/15/24 10:33 3.125 MG Lisinopril 10 mg DAILY PO 07/14/24 10:00 07/15/24 10:34 10 MG Atorvastatin Calcium 10 mg HS PO 07/13/24 22:00 07/14/24 00:09 10 MG Aspirin 81 mg DAILY PO 07/14/24 10:00 07/15/24 10:33 81 MG Ondansetron HCl 4 mg Q4HP PRN IV 07/13/24 22:00 Enoxaparin Sodium 40 mg DAILY SC 07/14/24 10:00 Acetaminophen 650 mg Q6HP PRN PO 07/13/24 22:00 Furosemide 40 mg DAILY IV 07/15/24 10:00 07/15/24 10:32 40 MG Cefazolin Sodium 50 ml @ 100 mls/hr Q8HR IV 07/14/24 22:00 07/15/24 05:37 100 MLS/HR Laboratory Results Laboratory Tests 07/15/24 07:27 Chemistry Test 07/15/24 07:27 Calcium Level 9.5 mg/dL (8.7-10.4) HgA1c, TSH Test 07/15/24 07:27 Thyroid Stimulating Hormone (TSH) 1.61 uIU/mL (0.55-4.78) Urinalysis Test 07/13/24 20:12 Urine Color Yellow (Yellow) Urine Clarity Clear (Clear) Urine pH 5.5 (5.0-9.0) Urine Specific [place] 1.026 (1.001-1.035) Urine Protein 1+ (Negative) H Urine Ketones Negative (Negative) Urine Blood Negative /uL (Negative) Urine Nitrite Negative (Negative) Urine Bilirubin Negative (Negative) Urine Urobilinogen Normal mg/dL (Negative) Urine Leukocyte Esterase Negative /uL (Negative) Urine RBC 1 /hpf (0 - 3) Urine WBC 1 /hpf (0 - 3) Urine Squamous Epithelial Cells Few /hpf (<5) Urine Bacteria None seen /hpf (None Seen) Urine Mucus Few (None Seen) Urine Glucose Normal mg/dL (Normal) Blood Gas Results Test 07/14/24 19:34 Arterial Blood pH 7.429 (7.350-7.450) FiO2 % 100.0 Labs and/or images reviewed: Labs reviewed by me, Image(s) reviewed by me Assessment/Plan Assessment/Plan Covering Dr. 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; continue oxygen therapy as indicated; continue monitoring #Acute on chronic congestive diastolic/systolic heart failure; continue IV diuresis; telemetry; continue monitoring #COPD; not in exacerbation; continue monitoring #Hypertensive heart disease with heart failure; continue current medical management for heart failure and hypertension; continue monitoring #CONSTANTINE on CKD stage 3; most likely vasomotor nephropathy; avoid nephrotoxic agents; continue monitoring #Cellulitis of left leg; continue IV antibiotics; continue monitoring #Morbid obesity with limited movement status post Glynn's; counseled importance of adopting healthy lifestyle with diet and exercise in order to lose weight Sound Equipment Mechanic consulted to transfer to [facility] Goals of care discussion for 20 minutes; full code Late Entry. This medical document was created using an electronic medical record system with computerized dictation system. Although this document has been carefully reviewed, there might still be some phonetic and typographical errors. These areas are purely typographical due to imperfections of the software programs, and do not reflect any compromise in the patient's medical care. Plan discussed with: Patient, Other (Nurse) My Orders Orders - ELIZABETH JIM MD Procedure Category Date Status Time Complete Blood Count LAB 07/16/24 Verified 04:00 Comprehensive LAB 07/16/24 Verified Metabolic Panel 04:00 Date of Service: Jul 15, 2024 Billing Provider: ELIZABETH JIM MD Common Visit Codes: [id number] INP/OBS CARE(HIGH) Secondary Visit Codes: [id number] CARE PLAN 30 MINUTES (20 minutes) ELIZABETH JIM MD Jul 15, 2024 11:05
[2024-07-16] VITALS (11 sets, daily range): BP systolic 114–145; BP diastolic 51–88; PULSE 59–86; RESP 14–20; TEMP 97.5–98.7; O2SAT 94–98
[2024-07-16] MEDS ORDERED: ESCI20TA PO (06:48)
[2024-07-16] MEDS ORDERED: BUPR150T8 PO (06:48)
[2024-07-16] MEDS ORDERED: LAMO25TA2 PO (07:09)
[2024-07-16 11:40] LABS: Basophils # (auto) 0 10 ^3/uL (0-0.2); Basophils % (auto) 0.5 % (0.0-2.0); Eosinophils # (auto) 0.2 10 ^3/uL (0-0.8); Eosinophils % (auto) 1.9 % (0.0-7.0); Lymphocytes # (auto) 1.1 10 ^3/uL (0.4-5.4); Lymphocytes % (auto) 11.2 % (10.0-50.0); Mean Corpuscular Hgb Conc. 33.2 g/dL (32.0-36.0); Mean Corpuscular Volume 96.3 fL (80.0-100.0); Monocytes # (auto) 0.9 10 ^3/uL (0-1.3); Monocytes % (auto) 8.8 % (0.0-12.0); Neutrophils % (auto) 77.6 % (37.0-80.0); Platelet Count (auto) 137 10^3/uL (140-450); Red Blood Cells 4.36 10^6/uL (4.5-5.90); Red Cell Distribution Width 15.6 % (11.8-14.3); White Blood Cell 10.2 10^3/uL (4.4-10.8)
[2024-07-16 11:55] LABS: Alanine Aminotransferase 20 U/L (7-40); Albumin 3.6 g/dL (3.2-4.8); Anion Gap 6 (5-15); Aspartate Aminotransferase 19 U/L (13-40); BUN/Creatinine Ratio 18.7 (10.0-20.0); Calcium 9.6 mg/dL (8.7-10.4); Chloride 102 mmol/L (98-107); Potassium 4.1 mmol/L (3.5-5.1); Sodium 140 mmol/L (136-145)
[2024-07-16 11:56] LABS: Bilirubin, Total 0.7 mg/dL (0.2-1.0); Total Protein 5.9 g/dL (5.7-8.2)
[2024-07-16 11:58] LABS: Blood Urea Nitrogen 31 mg/dL (9-23); Carbon Dioxide 32 mmol/L (20-31); Glucose 208 mg/dL (74-106)
[2024-07-16 11:59] LABS: Alkaline Phosphatase 152 U/L (46-116)
--- NOTE | 2024-07-16 18:24 | DVHPN2 ---
Subjective still feeling sob Reviewed: Care Plan, H&P, Labs, Medications, Previous Orders, Radiology Changes from previous H/P or p: No Changes Objective Vitals Vital Signs Date Time Temp Pulse Resp B/P (MAP) Pulse Ox O2 Delivery O2 Flow Rate FiO2 07/16/24 12:49 98.1 61 16 114/56 (75) 98 98.1 07/16/24 10:23 Nasal Cannula* 3 32 Intake/Output Intake and Output 07/16/24 05:00 Intake Total 2150 ml Output Total 2750 ml Balance -600 ml Intake Oral 2000 ml IV Total 150 ml Output Urine Total 2750 ml General Appearance: Alert, Oriented X3, Cooperative, mild distress, Other (Morbidly obese) HEENT: Atraumatic Lungs: Other (Decreased air entry bilaterally with scattered crackles) Cardiovascular: Regular rate, Normal S1, Normal S2 Genitourinary: Other (Glynn's) Extremities: Other (Pitting edema) Neuro: Normal speech, Cranial nerves 3-12 NL Skin: Other (Left leg signs of infection/cellulitis) Psych/Mental Status: Mental status NL Medications Current Medications Medications Dose Ordered Sig/Carey Route Start Time Stop Time Status Last Admin Dose Admin Nitroglycerin 0.4 mg Q5MINP PRN SL 07/13/24 21:00 Morphine Sulfate 2 mg Q30M PRN IV 07/13/24 21:00 Albuterol 2.5 mg Q6HPRN PRN NEB 07/13/24 22:00 07/16/24 10:23 2.5 MG Carvedilol 3.125 mg Q12HR PO 07/13/24 22:00 07/16/24 10:47 3.125 MG Lisinopril 10 mg DAILY PO 07/14/24 10:00 07/16/24 10:45 10 MG Atorvastatin Calcium 10 mg HS PO 07/13/24 22:00 07/15/24 21:32 10 MG Aspirin 81 mg DAILY PO 07/14/24 10:00 07/16/24 10:46 81 MG Ondansetron HCl 4 mg Q4HP PRN IV 07/13/24 22:00 Enoxaparin Sodium 40 mg DAILY SC 07/14/24 10:00 Acetaminophen 650 mg Q6HP PRN PO 07/13/24 22:00 Furosemide 40 mg DAILY IV 07/15/24 10:00 07/16/24 10:48 40 MG Cefazolin Sodium 50 ml @ 100 mls/hr Q8HR IV 07/14/24 22:00 07/16/24 14:58 100 MLS/HR Bupropion HCl 150 mg DAILY PO 07/17/24 10:00 UNV Lamotrigine 25 mg DAILY PO 07/17/24 10:00 UNV Lorazepam 5 mg Q4HP PRN PO 07/16/24 17:00 UNV Patient Own Medication 1 DAILY PO 07/17/24 10:00 UNV Laboratory Results Laboratory Tests 07/16/24 10:50 Chemistry Test 07/16/24 10:50 Albumin 3.6 g/dL (3.2-4.8) Calcium Level 9.6 mg/dL (8.7-10.4) Total Protein 5.9 g/dL (5.7-8.2) LFT Test 07/16/24 10:50 Alanine Aminotransferase (ALT) 20 U/L (7-40) Alkaline Phosphatase 152 U/L (46-116) H Aspartate Amino Transferase (AST) 19 U/L (13-40) Total Bilirubin 0.7 mg/dL (0.2-1.0) Urinalysis Test 07/13/24 20:12 Urine Color Yellow (Yellow) Urine Clarity Clear (Clear) Urine pH 5.5 (5.0-9.0) Urine Specific [place] 1.026 (1.001-1.035) Urine Protein 1+ (Negative) H Urine Ketones Negative (Negative) Urine Blood Negative /uL (Negative) Urine Nitrite Negative (Negative) Urine Bilirubin Negative (Negative) Urine Urobilinogen Normal mg/dL (Negative) Urine Leukocyte Esterase Negative /uL (Negative) Urine RBC 1 /hpf (0 - 3) Urine WBC 1 /hpf (0 - 3) Urine Squamous Epithelial Cells Few /hpf (<5) Urine Bacteria None seen /hpf (None Seen) Urine Mucus Few (None Seen) Urine Glucose Normal mg/dL (Normal) Microbiology Microbiology Date/Time Source Procedure Growth Status 07/14/24 05:07 Leg Gram Stain - Final Resulted 07/14/24 05:07 Leg Wound Culture - Preliminary Resulted Assessment/Plan Assessment/Plan Covering Dr. 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; continue oxygen therapy as indicated; continue monitoring #Acute on chronic congestive diastolic/systolic heart failure; continue IV diuresis; telemetry; continue monitoring #COPD; not in exacerbation; continue monitoring #Hypertensive heart disease with heart failure; continue current medical management for heart failure and hypertension; continue monitoring #CONSTANTINE on CKD stage 3; most likely vasomotor nephropathy; avoid nephrotoxic agents; continue monitoring #Cellulitis of left leg; continue IV antibiotics; continue monitoring #Morbid obesity with limited movement status post Glynn's; counseled importance of adopting healthy lifestyle with diet and exercise in order to lose weight Veneer Clipper consulted to transfer to [facility] Plan discussed with: Patient Date of Service: Jul 16, 2024 Billing Provider: GERA POWERS MD Common Visit Codes: [id number] INP/OBS CARE(HIGH) GERA POWERS MD Jul 16, 2024 18:24
[2024-07-16] MEDS: LORazepam 0.5 MG TAB PO PRN (22:28)
[2024-07-17] VITALS (11 sets, daily range): BP systolic 109–131; BP diastolic 51–92; PULSE 49–74; RESP 12–20; TEMP 96.3–98; O2SAT 92–100
[2024-07-17] MEDS: lamoTRIgine 25 MG TAB PO SCH (09:23)
[2024-07-17] MEDS: buPROPion HCL 75 MG TAB PO SCH (09:24)
[2024-07-17 12:30] LABS: Basophils # (auto) 0.1 10 ^3/uL (0-0.2); Basophils % (auto) 0.9 % (0.0-2.0); Eosinophils # (auto) 0.2 10 ^3/uL (0-0.8); Eosinophils % (auto) 3.1 % (0.0-7.0); Hematocrit 42.6 % (41.0-53.0); Hemoglobin 14.1 g/dL (13.5-17.5); Lymphocytes # (auto) 1.3 10 ^3/uL (0.4-5.4); Lymphocytes % (auto) 16.6 % (10.0-50.0); Mean Corpuscular Hemoglobin 31.6 pg (28.0-32.0); Mean Corpuscular Hgb Conc. 33.2 g/dL (32.0-36.0); Monocytes # (auto) 0.9 10 ^3/uL (0-1.3); Monocytes % (auto) 11.3 % (0.0-12.0); Neutrophils # (auto) 5.2 10 ^3/uL (1.6-8.6); Neutrophils % (auto) 68.1 % (37.0-80.0); Nucleated Red Blood Cells % 0.1 %; Platelet Count (auto) 137 10^3/uL (140-450); Red Blood Cells 4.48 10^6/uL (4.5-5.90); Red Cell Distribution Width 15.5 % (11.8-14.3); White Blood Cell 7.6 10^3/uL (4.4-10.8)
[2024-07-17 12:49] LABS: Chloride 102 mmol/L (98-107); Sodium 142 mmol/L (136-145)
[2024-07-17 12:50] LABS: Anion Gap 3 (5-15)
[2024-07-17 12:51] LABS: Calcium 9.3 mg/dL (8.7-10.4)
[2024-07-17 12:56] LABS: BUN/Creatinine Ratio 20.1 (10.0-20.0); Blood Urea Nitrogen 28 mg/dL (9-23); Carbon Dioxide 37 mmol/L (20-31); Glucose 154 mg/dL (74-106)
[2024-07-17] MEDS: CITALOPRAM HYDROBR 20 MG TAB PO SCH (14:00)
--- NOTE | 2024-07-17 14:11 | DVH ---
CHEST RADIOGRAPH Indication: SOB Technique: Single frontal view of the chest was obtained COMPARISON: XY CHEST PORTABLE on DOS: 07/14/24, XY CHEST PORTABLE on DOS: 07/13/24 FINDINGS: Lines and Tubes: None Lungs: Congestion Pleura: No effusion. No pneumothorax. Cardiomediastinal contours: Cardiomegaly Bones: Unremarkable IMPRESSION: No significant interval change.
--- NOTE | 2024-07-17 21:30 | DVHPN2 ---
Subjective still feeling sob Reviewed: Care Plan, H&P, Labs, Medications, Previous Orders, Radiology Changes from previous H/P or p: No Changes Objective Vitals Vital Signs Date Time Temp Pulse Resp B/P (MAP) Pulse Ox O2 Delivery O2 Flow Rate FiO2 07/17/24 19:15 98 Nasal Cannula* 2 28 07/17/24 17:15 98.0 50 20 110/60 (77) 98.0 Intake/Output Intake and Output 07/17/24 05:00 Intake Total 2340 ml Output Total 2450 ml Balance -110 ml Intake Oral 2240 ml IV Total 100 ml Output Urine Total 2450 ml # Bowel Movements 1 General Appearance: Alert, Oriented X3, Cooperative, mild distress, Other (Morbidly obese) HEENT: Atraumatic Lungs: Other (Decreased air entry bilaterally with scattered crackles) Cardiovascular: Regular rate, Normal S1, Normal S2 Genitourinary: Other (Glynn's) Extremities: Other (Pitting edema) Neuro: Normal speech, Cranial nerves 3-12 NL Skin: Other (Left leg signs of infection/cellulitis) Psych/Mental Status: Mental status NL Medications Current Medications Medications Dose Ordered Sig/Carey Route Start Time Stop Time Status Last Admin Dose Admin Nitroglycerin 0.4 mg Q5MINP PRN SL 07/13/24 21:00 Morphine Sulfate 2 mg Q30M PRN IV 07/13/24 21:00 Albuterol 2.5 mg Q6HPRN PRN NEB 07/13/24 22:00 07/17/24 11:34 2.5 MG Carvedilol 3.125 mg Q12HR PO 07/13/24 22:00 07/17/24 09:23 3.125 MG Lisinopril 10 mg DAILY PO 07/14/24 10:00 07/17/24 09:24 10 MG Atorvastatin Calcium 10 mg HS PO 07/13/24 22:00 07/16/24 21:30 10 MG Aspirin 81 mg DAILY PO 07/14/24 10:00 07/17/24 09:22 81 MG Ondansetron HCl 4 mg Q4HP PRN IV 07/13/24 22:00 Enoxaparin Sodium 40 mg DAILY SC 07/14/24 10:00 07/17/24 09:25 40 MG Acetaminophen 650 mg Q6HP PRN PO 07/13/24 22:00 Furosemide 40 mg DAILY IV 07/15/24 10:00 07/17/24 09:21 40 MG Cefazolin Sodium 50 ml @ 100 mls/hr Q8HR IV 07/14/24 22:00 07/17/24 14:00 100 MLS/HR Bupropion HCl 150 mg DAILY PO 07/17/24 10:00 07/17/24 09:24 150 MG Lamotrigine 25 mg DAILY PO 07/17/24 10:00 07/17/24 09:23 25 MG Lorazepam 5 mg Q4HP PRN PO 07/16/24 17:00 07/16/24 22:28 5 MG Citalopram Hydrobromide 40 mg DAILY PO 07/17/24 10:00 07/17/24 14:00 40 MG Laboratory Results Laboratory Tests 07/17/24 12:18 Chemistry Test 07/17/24 12:18 Calcium Level 9.3 mg/dL (8.7-10.4) Cardiac Markers Test 07/17/24 12:18 B-Type Natriuretic Peptide 265.28 pg/mL (0-100) Urinalysis Test 07/13/24 20:12 Urine Color Yellow (Yellow) Urine Clarity Clear (Clear) Urine pH 5.5 (5.0-9.0) Urine Specific [place] 1.026 (1.001-1.035) Urine Protein 1+ (Negative) H Urine Ketones Negative (Negative) Urine Blood Negative /uL (Negative) Urine Nitrite Negative (Negative) Urine Bilirubin Negative (Negative) Urine Urobilinogen Normal mg/dL (Negative) Urine Leukocyte Esterase Negative /uL (Negative) Urine RBC 1 /hpf (0 - 3) Urine WBC 1 /hpf (0 - 3) Urine Squamous Epithelial Cells Few /hpf (<5) Urine Bacteria None seen /hpf (None Seen) Urine Mucus Few (None Seen) Urine Glucose Normal mg/dL (Normal) Blood Gas Results Test 07/17/24 11:50 Arterial Blood pH 7.409 (7.350-7.450) FiO2 % 28.0 Microbiology Microbiology Date/Time Source Procedure Growth Status 07/14/24 05:07 Leg Gram Stain - Final Resulted 07/14/24 05:07 Leg Wound Culture - Preliminary Resulted Assessment/Plan Assessment/Plan Covering Dr. 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; continue oxygen therapy as indicated; continue monitoring #Acute on chronic congestive diastolic/systolic heart failure; continue IV diuresis; telemetry; continue monitoring #COPD; not in exacerbation; continue monitoring #Hypertensive heart disease with heart failure; continue current medical management for heart failure and hypertension; continue monitoring #CONSTANTINE on CKD stage 3; most likely vasomotor nephropathy; avoid nephrotoxic agents; continue monitoring #Cellulitis of left leg; continue IV antibiotics; continue monitoring #Morbid obesity with limited movement status post Glynn's; counseled importance of adopting healthy lifestyle with diet and exercise in order to lose weight Kalsominer consulted to transfer to [facility] Plan discussed with: Patient My Orders Orders - GERA POWERS MD Procedure Category Date Status Time Chest Portable XY 07/17/24 Resulted 11:33 Abg W/ Co-Ox RT 07/17/24 Logged 11:40 Date of Service: Jul 17, 2024 Billing Provider: GERA POWERS MD Common Visit Codes: [id number] INP/OBS CARE(HIGH) GERA POWERS MD Jul 17, 2024 21:30
[2024-07-18] VITALS (10 sets, daily range): BP systolic 122–160; BP diastolic 63–98; PULSE 56–65; RESP 16–19; TEMP 37; O2SAT 92–99
--- NOTE | 2024-07-18 12:00 | DVHDS2 ---
Discharge Summary Date of Admission Jul 13, 2024 at 20:48 Date of Discharge: Jul 18, 2024 Labs/Diagnostic Data: Laboratory Results Test 07/17/24 12:18 07/17/24 11:50 07/16/24 10:50 07/15/24 07:27 White Blood Count 7.6 10^3/uL (4.4-10.8) Red Blood Count 4.48 10^6/uL (4.5-5.90) Hemoglobin 14.1 g/dL (13.5-17.5) Hematocrit 42.6 % (41.0-53.0) Mean Corpuscular Volume 95.0 fL (80.0-100.0) Mean Corpuscular Hemoglobin 31.6 pg (28.0-32.0) Mean Corpuscular Hemoglobin Concent 33.2 g/dL (32.0-36.0) Red Cell Distribution Width 15.5 % (11.8-14.3) Platelet Count 137 10^3/uL (140-450) Mean Platelet Volume 10.0 fL (6.9-10.8) Neutrophils (%) (Auto) 68.1 % (37.0-80.0) Lymphocytes (%) (Auto) 16.6 % (10.0-50.0) Monocytes (%) (Auto) 11.3 % (0.0-12.0) Eosinophils (%) (Auto) 3.1 % (0.0-7.0) Basophils (%) (Auto) 0.9 % (0.0-2.0) Neutrophils # (Auto) 5.2 10 ^3/uL (1.6-8.6) Lymphocytes # (Auto) 1.3 10 ^3/uL (0.4-5.4) Monocytes # (Auto) 0.9 10 ^3/uL (0-1.3) Eosinophils # (Auto) 0.2 10 ^3/uL (0-0.8) Basophils # (Auto) 0.1 10 ^3/uL (0-0.2) Nucleated Red Blood Cells 0.1 % Sodium Level 142 mmol/L (136-145) Potassium Level 4.0 mmol/L (3.5-5.1) Chloride Level 102 mmol/L (98-107) Carbon Dioxide Level 37 mmol/L (20-31) Anion Gap 3 (5-15) Blood Urea Nitrogen 28 mg/dL (9-23) Creatinine 1.39 mg/dL (0.700-1.30) Glomerular Filtration Rate Calc 49 mL/min (>90) BUN/Creatinine Ratio 20.1 (10.0-20.0) Serum Glucose 154 mg/dL (74-106) Calcium Level 9.3 mg/dL (8.7-10.4) B-Type Natriuretic Peptide 265.28 pg/mL (0-100) Blood Gas Specimen Type Arterial Blood Gas Sample Site Left radial Blood Gas Patient Temperature 37.0 Arterial Blood Date Drawn [id number] Arterial Blood pH 7.409 (7.350-7.450) Arterial Blood Partial Pressure CO2 54.1 mmHg (35.0-48.0) Arterial Blood Partial Pressure O2 95.0 mmHg (83.0-108.0) Arterial Blood HCO3 33.4 mmol/L (21.0-28.0) Arterial Blood Oxygen Saturation 97.1 % (94.0-98.0) Arterial Blood Base Excess 7.0 mmol/L (-2.0-3.0) Arterial Blood Oxyhemoglobin 96.1 % (94.0-98.0) Arterial Blood Carboxyhemoglobin 0.8 % (0.5-1.5) Arterial Blood Methemoglobin 0.2 % (0.0-1.5) Jorge Test Yes Blood Gas Total Hemoglobin 15.10 g/dL (13.5-17.5) Blood Gas Liter Flow 2.00 Blood Gas Modality Nasal cannula FiO2 % 28.0 Total Bilirubin 0.7 mg/dL (0.2-1.0) Aspartate Amino Transferase (AST) 19 U/L (13-40) Alanine Aminotransferase (ALT) 20 U/L (7-40) Alkaline Phosphatase 152 U/L (46-116) Total Protein 5.9 g/dL (5.7-8.2) Albumin 3.6 g/dL (3.2-4.8) Vitamin B12 Level 1105 pg/mL (211-911) Thyroid Stimulating Hormone (TSH) 1.61 uIU/mL (0.55-4.78) Test 07/14/24 21:24 07/14/24 01:35 07/13/24 20:12 07/13/24 17:32 POC Glucose 225 mg/dl (70-106) D-Dimer, Quantitative 0.47 mg/L FEU (0.0-0.49) Urine Color Yellow (Yellow) Urine Clarity Clear (Clear) Urine pH 5.5 (5.0-9.0) Urine Specific [place] 1.026 (1.001-1.035) Urine Protein 1+ (Negative) Urine Ketones Negative (Negative) Urine Blood Negative /uL (Negative) Urine Nitrite Negative (Negative) Urine Bilirubin Negative (Negative) Urine Urobilinogen Normal mg/dL (Negative) Urine Leukocyte Esterase Negative /uL (Negative) Urine RBC 1 /hpf (0 - 3) Urine WBC 1 /hpf (0 - 3) Urine Squamous Epithelial Cells Few /hpf (<5) Urine Bacteria None seen /hpf (None Seen) Urine Mucus Few (None Seen) Urine Glucose Normal mg/dL (Normal) Troponin I High Sensitivity 12 ng/L (</=54) Other Laboratory Tests 07/17/24 12:18 Brief Hx & Hospital Course: see dictated note Condition at Discharge: Fair Final Diagnosis/Problems List chf Discharge Disposition: Acute Care Facility Discharge Instruct/Medications Diet: Cardiac 2g Na,low cholest Activity: No Restrictions, As Tolerated Follow Up/Referral: fu with [place] Medications: per oct Discharge Statement: "Patient was advised to return to the ER or call 911 if any headaches, dizziness, shortness of breath, chest pain, abdominal pain, bleeding, fevers, or worsening of medical condition. Patient was counseled about treatment plan, medications, possible side effects, patientverbalized understanding. All questions were answered to the best of my ability. This discharge took greater then 30 minutes in planning, reviewing documentation, counseling the patient, and discussing with other team members." ASSESSMENT ASSESSMENT Assessment chf Date of Service: Jul 18, 2024 Billing Provider: LORI ROSE MD Common Visit Codes: [id number] DISCH DAY >30min LORI ROSE MD Jul 18, 2024 12:00
--- NOTE | 2024-07-18 21:42 | DVHDS ---
DATE OF DISCHARGE: 07/18/2024 HISTORY OF PRESENT ILLNESS: The patient is an 84-year-old gentleman who was admitted with history of increasing shortness of breath and low oxygen saturation. He has history of congestive heart failure, COPD, hypertension, hyperlipidemia. HOSPITAL COURSE: The patient had a chest x-ray that showed evidence of cardiomegaly with pulmonary edema. The patient had a Doppler of lower extremities that was negative for DVT. The patient has ulceration of the left leg. Wound culture currently is growing coag-negative Staph. The patient had elevated BNP and was placed on diuretics. The patient at this time continues to be short of breath. He wishes to be transferred to [place] for further management. The patient had a CT of the head that showed no acute intracranial abnormality. His echocardiogram is currently pending. FINAL DIAGNOSES: Therefore, * Acute respiratory failure. * Acute systolic/diastolic heart failure. * Cellulitis of left leg. * Obesity. * Chronic obstructive pulmonary disease with exacerbation. * Chronic kidney disease stage III. * Thrombocytopenia. * Nonambulatory status. Time spent in discharge planning and review of plan with the patient, nursing and paperwork was 39 minutes. MD JEAN CLAUDE Olson/ARNOLD/REUBEN TID: [id number] RECEIPT: [id number]
== END 2024-07-18 21:16 | disposition short-term general hospital (02) | DRG 291 ==
LOC: EDBD 15:27 → ER 15:27 → TELE 20:48 → TELE-WESTW 07-14 09:18
PROVIDERS: ADMIT Nurse Practitioner; ATTEND Internal Medicine
DX: I13.0 Hypertensive heart and chronic kidney disease with heart failure and stage 1 through stage 4 chronic kidney disease, or unspecified chronic kidney disease (principal); I50.43 Acute on chronic combined systolic (congestive) and diastolic (congestive) heart failure; J96.21 Acute and chronic respiratory failure with hypoxia; N17.0 Acute kidney failure with tubular necrosis; J44.1 Chronic obstructive pulmonary disease with (acute) exacerbation; L03.116 Cellulitis of left lower limb; L97.929 Non-pressure chronic ulcer of unspecified part of left lower leg with unspecified severity; F03.90 Unspecified dementia, unspecified severity, without behavioral disturbance, psychotic disturbance, mood disturbance, and anxiety; N18.30 Chronic kidney disease, stage 3 unspecified; D69.6 Thrombocytopenia, unspecified; E66.01 Morbid (severe) obesity due to excess calories; E78.5 Hyperlipidemia, unspecified; Z79.899 Other long term (current) drug therapy; Z68.37 Body mass index [BMI] 37.0-37.9, adult
CPT/HCPCS: 36415; 36600; 70450; 71045; 80048; 80053; 81001; 82607; 82805; 82962; 83880; 84443; 84484; 85025; 85379; 87205; 93005; 93970; 94640; 99291; G0378